=== PATIENT | male | born 1945 | race Caucasian/White ===

== ENCOUNTER 2022-08-16 10:37 | Day surgery (SDC) | payer MEDICARE ==
[~2022-08-16] VITALS: Ht 177.8 cm; Wt 123.7 kg
[~2022-08-16 10:37] MED LIST: BETAMETHASONE SOLUSPAN 6MG/ML 5ML VIAL As Ordered ONE; BUSP5TA PO; CARB25TA9 PO; FURO40TA2 PO; GABA-282 PO; LIDOCAINE 1% SDV 5ML VIAL As Ordered ONE; LIDOCAINE 2% W/EPINEPHRINE 20ML VIAL **PRES FREE As Ordered ONE; LIDOCAINE 3.5 % 1ML OPHTH TOPICAL GEL OU ONE; LOSA50TA28 PO; NATE60TA13 PO; POTA1TAB23 PO; PRAV40TA2 PO; PROP10TA56 PO; TOBRADEX OPHTH OINT 3.5 GM As Ordered ONE; TOBRAMYCIN 80MG/2ML VIAL As Ordered ONE; mitoMYcin 0.2 MG/VIAL KIT FOR OPHTHALMIC USE As Ordered ONE
[2022-08-16] MEDS ORDERED: TOBRADEX OPHTH OINT 3.5 GM As Ordered ONE (12:01)
[2022-08-16] MEDS ORDERED: MIDAZOLAM INJ 2MG/2ML VIAL As Ordered ONE (12:27)
[2022-08-16] MEDS ORDERED: fentaNYL 100 MCG/2 ML INJECTION As Ordered ONE (12:27)
[2022-08-16 13:25] VITALS: BP 144/76
== END 2022-08-16 13:25 | disposition home or self-care (01) ==
LOC: M SDC 10:37
PROVIDERS: ATTEND Ophthalmology
DX: H11.051 Peripheral pterygium, progressive, right eye (principal); I10 Essential (primary) hypertension; E78.5 Hyperlipidemia, unspecified; E11.9 Type 2 diabetes mellitus without complications; M54.50 Low back pain, unspecified; F41.9 Anxiety disorder, unspecified; F32.A Depression, unspecified; G20 Parkinson's disease; R22.43 Localized swelling, mass and lump, lower limb, bilateral; F10.10 Alcohol abuse, uncomplicated; Z79.899 Other long term (current) drug therapy
CPT/HCPCS: 65426; 88304; J2250; J3010; J7315; V2790